=== PATIENT | female | born 2000 | race American Indian/Alaskan Native ===

== ENCOUNTER 2024-12-10 13:39 | Outpatient (AMB) | payer OTHER, SELFPAY ==
[2024-12-10 13:58] VITALS: BP 117/74; PULSE 81; RESP 18; TEMP 36.2; O2SAT 98; BMI 28.3
--- NOTE | 2024-12-10 13:58 | OBCLNT_ITS ---
Vital Signs 12/10/24 13:58 Height 1.57 m Height Method Stated Weight 70.42 kg Weight Measurement Method Standing Scale BMI 28.3 BP 117/74 Blood Pressure Source Automatic Cuff Blood Pressure Location Left Upper Arm Position Sitting Respiration 18 Pulse 81 Pulse Source Monitor Temp 97.2 F Temp Source Oral Pulse Oximetry (%) 98 Oxygen Delivery Method Room Air Allergies/Home Meds Allergies & Medications Allergies Penicillins Allergy (Severe, Verified 02/21/24 09:41) HIVES Medication Reconciliation No Known Home Medications 02/20/24 [History Confirmed 12/10/24] Intake Visit Data Collection New Patient or Established: Established Patient (seen at [facility] within 3 years) Reason for Visit:: OB INITAL Seen by Clinical Staff ONLY (RN/MA): No Christian Education Director Required: No Do You Feel Safe at Home: Yes Authorities Contacted: N/A PCP or OBGYN visit in last 3 months: Yes Hx Now: Yes Are you currently on any form of Control: No Last menstrual period: 10/01/24 Pain Present Currently: No Pain Scale Used: Velazquez-Agrawal/Numerical Pain scale:: 0 Smoking Status Smoking Status: Never smoker Questionnaires Covid-19 Vaccine Questionnaire Has patient been vacinated for Covid-19 Have you been vacinated for Covid-19: Yes PHQ-9 PHQ-2 Over the last 2 weeks, how often have you been bothered by any of the following problems? 1. Little interest or pleasure in doing things: not at all 2. Feeling down, depressed, or hopeless: not at all Total score: 0 PHQ-9 3. Trouble falling or staying asleep, or sleeping too much: Not at all 4. Feeling tired or having little energy: Not at all 5. Poor appetite or overeating: Not at all 6. Feeling bad about yourself - or that you are a failure or have let yourself or your family down: Not at all 7. Trouble concentrating on things, such as reading the newspaper or watching television: Not at all 8. Moving or speaking so slowly that other people could have noticed? - Or the opposite - being so fidgety or restless that you have been moving around a lot more than usual: not at all 9. Thoughts that you would be better off or of hurting yourself in some way: Not at all Total score: 0 If you checked off any problems, how difficult have these problems made it for you to do your work, take care of things at home, or get along with other people?: not difficult at all Source: Developed by Drs. Sergio Sarah, Sowmya Cross, Jorgito Montaño and colleagues, with an educational maegan from [employer]. Depression screen completed yes Social History Living Situation History Marital Status: Single Lives With: Family Housing: House Tobacco History Smoking Status: Never smoker Second Hand Smoke Exposure: No Alcohol History Alcohol Intake: Never Domestic Abuse History Do You Feel Safe at Home: Yes History of Present Illness HPI Narrative 24-year-old 3 para 1 here clinic today for OBI. Patient has 4-year-old at home. Her last period October 01, 2024. Reports sure dates. Patient denies social habits. Denies chronic illness. Denies any surgeries. Patient feels tired she does have some nausea but she is dealing with that. Denies any SAB complaints. 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: Past Medical History Past Medical History: No Hx Neurological Disorders, Yes Hx Cardiac Disorders (chest pain, palpitations in 2018), No Hx Cancer, No Hx Blood Disorders, No Hx Gastrointestinal Disorders, No Hx Renal Disease, No Hx Diabetes Mellitus Type 1 and No Hx Diabetes Mellitus Type 2 OB Initial Visit OB Flowsheet OB Flowsheet Initial Weight: Not Recorded Date -?-?-?-?-?-?-?-?-?-?-?-?- EGA Weight BP Alb Glu CTX Pres Fundal ht FHR Mov Dilation Station Effacement Hx Notes Visit Note 12/10/24 -?-?-?-?-?-?-?-?-?-?-?-?- 10w 0d 70.42 kg 117/74 absent unknown 10 145 24-year-old 3 para 1 for OBI. Slight nausea. Denies SAB complaints. And she is very happy with . OB panel today w ith NIPT and carrier screen. This schedule maternal- medicine ultrasound. Discussed SAB precautions. Increase fluids. Comfort measures for first trimester discomforts and nausea. And return in 4 weeks OB check Menstrual History Menstrual reliability: definite Flow: normal Menstrual regularity: regular Monthly: Yes Age at menarche: 11 On control pills at conception: No OB History : 3 Para: 1 Hx # Pregnancies: 0 Hx Total # of Abortions (Spontaneous & Elective): 1 # of Living Children: 1 Delivery History 1st : date: 09/19/19 sex: male Gestational age at delivery (weeks): 40 Delivery type: vaginal weight (lbs): 3175.147 g History of depression before or after : No Infection History & Risk Evaluation History of STDs: none HIV risk evaluation: low risk Hepatitis B risk evaluation: low risk Patient or partner has history of Genital Herpes: No Varicella/chicken pox status: immunized Genetic Screening & History Genetic Screening/Teratology Counseling - Includes patient, baby's father, or anyone in either family with: 1. Patient's age 35 years or older as of estimated date of delivery: No 2. Thalassemia (Haitian, Cayman Islander, Mediterranean, or Background); MCV less than 80: No 3. Neural Tube Defect (Meningomyelocele, Spina Bifida, or Anencephaly): No 4. Congenital Heart Defect: No 5. Down Syndrome: No 6. Jorge-Sachs (Ashkenazi Yazdanism, Cajun, Tajik [place]): No 7. Eden Disease (Ashkenazi Yazdanism): No 8. Familial Dysautonomia (Ashkenazi Yazdanism): No 9. Sickle Cell Disease or Trait (): No 10. Hemophilia or other blood disorders: No 11. Muscular Dystrophy: No 12. Cystic Fibrosis: No 13. [place]'s Chorea: No 14. Mental Retardation/Autism: No 15. Other inherited genetic or chromosomal disorder: No 16. Maternal Metabolic Disorder (EG,TYPE 1 Diabetes, PKU): No 17. Patient or baby's father had a child with defects not listed above: No 18. Recurrent loss or a stillbirth: No 19. Medications (including supplements, vitamins, herbs or otc drugs)/ill icit/recreational drugs/alcohol since last menstrual period: No 20. Any other: No Infection History 1. Live with someone with TB or exposed to TB: No 2. Rash or viral illness since last menstrual period: No 3. Hepatitis B,C: No Other (see comments) Source: [employer] Review of Systems Review of Systems Systems Reviewed: All systems reviewed, normal except as documented Exam General Limitations: no limitations General Appearance: alert, in no apparent distress, comfortable, cooperative, healthy appearing, well developed and well groomed Head Head exam: atraumatic, normocephalic and normal inspection Resp Respiratory exam: Present normal lung sounds bilaterally Card Cardiovascular exam: Present regular rate, normal rhythm and normal heart sounds Abdominal Abdominal exam: Present soft and normal bowel sounds Psych Psychiatric exam: Present normal affect and normal mood Office Procedures OB Clinic LOC & Office Proc's Nursing/Assessment Patient Status: Established Patient OB Clinic Nursing Assessment: Medication Reconciliation, Update PMH in EMR and Vital Signs OB Clinic Coordination of Care: Complex Care and Chronic Disease 1-5, Consent,records obtained, informed consent, Education Simp Pt/Fam, Lab and Imaging orders, Results/Orders obtained and Staff clarify orders Special Needs: Heart tones Established Patient Charge Established Patient Point Assignment: 135 Established Patient Point Charge: EP Level 4 (120-155) Assessment & Plan Diagnosis / Problem List (1) Encounter for supervision of normal in multigravida in first trimester: Status: Acute Plan OB panel today with NIPT and carrier screens. Schedule anatomy scan with maternal- medicine for 20 weeks. Discussed SAB precautions. Continue vitamins. Comfort measures for tiredness, nausea and other discomforts of . Discussed diet and weight. Increase fluids. Return in 4 weeks OB check Additional Plan Follow Up: 4 Weeks (OBC)
== END 2024-12-10 14:59 | disposition home or self-care (01) ==
LOC: HODSOBC 13:39
PROVIDERS: PCP Physician Assistant; Referring Provider Physician Assistant; Supervising Provider Advanced Practice Midwife; Visit Provider Advanced Practice Midwife
DX: Z34.81 Encounter for supervision of other normal pregnancy, first trimester (principal); Z3A.10 10 weeks gestation of pregnancy
CPT/HCPCS: 99214; G0463

== ENCOUNTER 2025-01-07 10:00 | Outpatient (AMB) | payer OTHER, SELFPAY ==
[2025-01-07 10:06] VITALS: BP 125/83; PULSE 91; RESP 17; TEMP 36.7; O2SAT 98; BMI 29.9
--- NOTE | 2025-01-07 10:06 | AMB.OBVISIT ---
Vital Signs 01/07/25 10:06 Height 1.57 m Height Method Measured Weight 74.106 kg Weight Measurement Method Standing Scale BMI 29.9 BP 125/83 Blood Pressure Source Automatic Cuff Blood Pressure Location Right Upper Arm Position Sitting Respiration 17 Pulse 91 Pulse Source Monitor Temp 98.1 F Temp Source Temporal Artery Scan Pulse Oximetry (%) 98 Oxygen Delivery Method Room Air Allergies/Home Meds Allergies & Medications Allergies Penicillins Allergy (Severe, Verified 01/07/25 10:07) HIVES Medication Reconciliation mv-mn no.97-folic 180 mcg-dha 25 mg-herb no.293 25 mg chewable tablet (Alive Daily Support ) tab PO 01/07/25 [History Confirmed 01/07/25] Intake Visit Data Collection New Patient or Established: Established Patient (seen at [facility] within 3 years) Reason for Visit:: OBC Consent obtained for Telemed Visit: No Seen by Clinical Staff ONLY (RN/MA): No Filter Tank Tender Required: No Do You Feel Safe at Home: Yes Authorities Contacted: N/A PCP or OBGYN visit in last 3 months: Yes Date of Last PCP or OBGYN visit: 12/10/24 Hx Now: Yes Are you currently on any form of Control: No Pain Present Currently: No Pain Scale Used: Velazquez-Agrawal/Numerical Pain scale:: 0 Smoking Status Smoking Status: Never smoker Questionnaires Covid-19 Vaccine Questionnaire Has patient been vacinated for Covid-19 Have you been vacinated for Covid-19: Yes PHQ-9 PHQ-2 Over the last 2 weeks, how often have you been bothered by any of the following problems? 1. Little interest or pleasure in doing things: not at all PHQ-9 8. Moving or speaking so slowly that other people could have noticed? - Or the opposite - being so fidgety or restless that you have been moving around a lot more than usual: not at all Source: Developed by Drs. Sergio Sarah, Sowmya Cross, Jorgito Montaño and colleagues, with an educational maegan from [employer]. 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 Slight nausea. Denies SAB complaints. And she is very happy with . OB panel today with NIPT and carrier screen. This schedule maternal- medicine ultrasound. Discussed SAB precautions. Increase fluids. Comfort measures for first trimester discomforts and nausea. And return in 4 weeks OB check 01/07/25 <del>?</del> 14w 0d 74.106 kg 125/83 absent unknown 14 145 active reports light FM, denies, sab s/s,no leaking,no bleeding, N/V improved. AFP NV, discuss sab precaution. mfm appt 02/18. rtc 4 week MC Calculator Estimated Delivery Date Method Current WG Current Estimate 07/08/25 LMP (Certain) 14w 0d Notes Visit Date: 01/07/25 Last Updated by: Mansi Glynn CNM 01/07/25: OB Panel: O+,abs-,rpr;;nr, rub NI, hbsag-,hiv-, hc-, GC/CT-, US-,UT-, NIPT_/girl, screen -. 250 Visit Date: 12/10/24 Last Updated by: Mansi Glynn CNM 24 yo . lmp 10/01/24. EDC 1:13;26 Office Procedures OB Clinic LOC & Office Proc's Nursing/Assessment Patient Status: Established Patient OB Clinic Nursing Assessment: Medication Reconciliation, Update PMH in EMR and Vital Signs OB Clinic Coordination of Care: Complex Care and Chronic Disease 1-5, Consent,records obtained, informed consent and 4+ Authorizations needed Special Needs: Heart tones Established Patient Charge Established Patient Point Assignment: 115 Established Patient Point Charge: EP Level 3 (80-115) Assessment & Plan Diagnosis / Problem List (1) Encounter for supervision of high risk in second trimester, antepartum: Status: Acute Plan discuss sab precaution, mfm appt 02/18. AFP NV. rtc 4 wk obc Additional Plan Follow Up: 4 Weeks (obc)
== END 2025-01-07 10:38 | disposition home or self-care (01) ==
LOC: HODSOBC 10:00
PROVIDERS: PCP Physician Assistant; Referring Provider Physician Assistant; Supervising Provider Advanced Practice Midwife; Visit Provider Advanced Practice Midwife
DX: O09.92 Supervision of high risk pregnancy, unspecified, second trimester (principal); Z3A.14 14 weeks gestation of pregnancy
CPT/HCPCS: 99213; G0463

== ENCOUNTER 2025-02-04 10:32 | Outpatient (AMB) | payer OTHER, SELFPAY ==
[2025-02-04 11:06] VITALS: BP 115/74; PULSE 73; RESP 14; TEMP 36.6; O2SAT 98; BMI 31.1
--- NOTE | 2025-02-04 11:06 | OBCLNT_ITS ---
Vital Signs 02/04/25 11:06 Height 1.57 m Height Method Stated Weight 76.714 kg Weight Measurement Method Standing Scale BMI 31.1 BP 115/74 Blood Pressure Source Automatic Cuff Blood Pressure Location Left Upper Arm Position Sitting Respiration 14 Pulse 73 Pulse Source Monitor Temp 98 F Temp Source Oral Pulse Oximetry (%) 98 Oxygen Delivery Method Room Air Allergies/Home Meds Allergies & Medications Allergies Penicillins Allergy (Severe, Verified 01/07/25 10:07) HIVES Medication Reconciliation mv-mn no.97-folic 180 mcg-dha 25 mg-herb no.293 25 mg chewable tablet (Alive Daily Support ) tab PO 01/07/25 [History Confirmed 02/04/25] Intake Visit Data Collection New Patient or Established: Established Patient (seen at [facility] within 3 years) Reason for Visit:: CARE Seen by Clinical Staff ONLY (RN/MA): No Smoking Pipe Coater Required: No Do You Feel Safe at Home: Yes Authorities Contacted: N/A PCP or OBGYN visit in last 3 months: Yes Hx Now: Yes Are you currently on any form of Control: No Pain Present Currently: No Pain Scale Used: Velazquez-Agrawal/Numerical Pain scale:: 0 Smoking Status Smoking Status: Never smoker Questionnaires Covid-19 Vaccine Questionnaire Has patient been vacinated for Covid-19 Have you been vacinated for Covid-19: Yes PHQ-9 PHQ-2 Over the last 2 weeks, how often have you been bothered by any of the following problems? 1. Little interest or pleasure in doing things: not at all 2. Feeling down, depressed, or hopeless: not at all Total score: 0 PHQ-9 3. Trouble falling or staying asleep, or sleeping too much: Not at all 4. Feeling tired or having little energy: Not at all 5. Poor appetite or overeating: Not at all 6. Feeling bad about yourself - or that you are a failure or have let yourself or your family down: Not at all 7. Trouble concentrating on things, such as reading the newspaper or watching television: Not at all 8. Moving or speaking so slowly that other people could have noticed? - Or the opposite - being so fidgety or restless that you have been moving around a lot more than usual: not at all 9. Thoughts that you would be better off or of hurting yourself in some way: Not at all Total score: 0 Source: Developed by Drs. Sergio Sarah, Sowmya Cross, Jorgito Montaño and colleagues, with an educational maegan from [employer]. 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 Slight nausea. Denies SAB complaints. And she is very happy with . OB panel today w ith NIPT and carrier screen. This schedule maternal- medicine ultrasound. Discussed SAB precautions. Increase fluids. Comfort measures for first trimester discomforts and nausea. And return in 4 weeks OB check 01/07/25 -?-?-?-?-?-?-?-?-?-?-?-?- 14w 0d 74.106 kg 125/83 absent unknown 14 145 active reports light FM, denies, sab s/s,no leaking,no bleeding, N/V improved. AFP NV, discuss sab precaution. mfm appt 02/18. rtc 4 week 02/04/25 -?-?-?-?-?-?-?-?-?-?-?-?- 18w 0d 76.714 kg 115/74 absent unknown 18 145 active No OB complaints. 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 MFM appointment scheduled for February 17. Reports movement. Denies leaking, denies bleeding, denies contractions. AFP, keep mfm appt 02/17, discussed labor precautions. Increase fluids. Return in 4 weeks OB check MC Calculator Estimated Delivery Date Method Current WG Current Estimate 07/08/25 LMP (Certain) 18w 0d Notes Visit Date: 01/07/25 Last Updated by: Mansi Glynn CNM 01/07/25: OB Panel: O+,abs-,rpr;;nr, rub NI, hbsag-,hiv-, hc-, GC/CT-, US-,UT-, NIPT_/girl, screen -. Visit Date: 12/10/24 Last Updated by: Mansi Glynn CNM 24 yo . lmp 10/01/24. EDC 1:13;26 Office Procedures OB Clinic LOC & Office Proc's Nursing/Assessment Patient Status: Established Patient OB Clinic Nursing Assessment: Medication Reconciliation, Update PMH in EMR and Vital Signs OB Clinic Coordination of Care: Complex Care and Chronic Disease 1-5, Consent,records obtained, informed consent, Education Simp Pt/Fam, Lab and Imaging orders, Results/Orders obtained and Staff clarify orders Special Needs: Heart tones Established Patient Charge Established Patient Point Assignment: 135 Established Patient Point Charge: EP Level 4 (120-155) Assessment & Plan Diagnosis / Problem List (1) Encounter for supervision of high risk in second trimester, antepartum: Status: Acute Plan aFP today. Keep MFM appointment from February 17. Discussed SAB precautions. Increase fluids. Return in 4 weeks OB check Additional Plan Follow Up: 4 Weeks (obc)
== END 2025-02-04 11:44 | disposition home or self-care (01) ==
LOC: HODSOBC 10:32
PROVIDERS: Supervising Provider Advanced Practice Midwife; Visit Provider Advanced Practice Midwife
DX: O09.92 Supervision of high risk pregnancy, unspecified, second trimester (principal); Z3A.18 18 weeks gestation of pregnancy; Z88.0 Allergy status to penicillin
CPT/HCPCS: 99214; G0463

== ENCOUNTER 2025-03-19 10:31 | Outpatient (AMB) | payer OTHER, SELFPAY ==
[2025-03-19 10:35] VITALS: BP 135/75; PULSE 105; RESP 17; TEMP 36.6; O2SAT 98; BMI 32.9
--- NOTE | 2025-03-19 10:35 | OBCLNT_ITS ---
Vital Signs 03/19/25 10:35 Height 1.57 m Height Method Measured Weight 81.25 kg Weight Measurement Method Standing Scale BMI 32.9 BP 135/75 H Blood Pressure Source Automatic Cuff Blood Pressure Location Right Upper Arm Position Sitting Respiration 17 Pulse 105 H Pulse Source Monitor Temp 97.8 F Temp Source Temporal Artery Scan Pulse Oximetry (%) 98 Oxygen Delivery Method Room Air Allergies/Home Meds Allergies & Medications Allergies Penicillins Allergy (Severe, Verified 01/07/25 10:07) HIVES Intake Visit Data Collection New Patient or Established: Established Patient (seen at [facility] within 3 years) Reason for Visit:: OBC FOLLOW UP Do You Feel Safe at Home: Yes Authorities Contacted: N/A PCP or OBGYN visit in last 3 months: Yes Date of Last PCP or OBGYN visit: 02/04/25 Hx Now: Yes Pain Present Currently: No Smoking Status Smoking Status: Never smoker Questionnaires PHQ-9 PHQ-2 Over the last 2 weeks, how often have you been bothered by any of the following problems? 1. Little interest or pleasure in doing things: not at all PHQ-9 8. Moving or speaking so slowly that other people could have noticed? - Or the opposite - being so fidgety or restless that you have been moving around a lot more than usual: not at all Source: Developed by Drs. Sergio Sarah, Sowmya Cross, Jorgito Montaño and colleagues, with an educational maegan from [employer]. 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 Slight nausea. Denies SAB complaints. And she is very happy with . OB panel today w ith NIPT and carrier screen. This schedule maternal- medicine ultrasound. Discussed SAB precautions. Increase fluids. Comfort measures for first trimester discomforts and nausea. And return in 4 weeks OB check 01/07/25 -?-?-?-?-?-?-?-?-?-?-?-?- 14w 0d 74.106 kg 125/83 absent unknown 14 145 active reports light FM, denies, sab s/s,no leaking,no bleeding, N/V improved. AFP NV, discuss sab precaution. [facility]. rtc 4 week 02/04/25 -?-?-?-?-?-?-?-?-?-?-?-?- 18w 0d 76.714 kg 115/74 absent unknown 18 145 active No OB complaints. 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 [facility] appointment scheduled for February 17. Reports movement. Denies leaking, denies bleeding, denies contractions. AFP, keep mfm appt 02/17, discussed labor precautions. Increase fluids. Return in 4 weeks OB check 03/19/25 -?-?-?-?-?-?-?-?-?-?-?-?- 24w 1d 81.25 kg 135/75 absent unknown 24 145 active No complaints of bleeding. No cramps. No leaking. Reports good movement. Patient was told her last ultrasound that the baby was measuring small and that she had complete previa Discussed previa with patient and precautions. labor precautions reviewed. Third trimester labs today with carrier screens. Discussed previa with patien t and precautions. labor precautions reviewed. Third trimester labs today. Discussed previa with patien t and precautions. labor precautions reviewed. Third trimester labs today. f[facility]u [facility]. schedule with OB MC Calculator Estimated Delivery Date Method Current WG Current Estimate 07/08/25 LMP (Certain) 24w 1d Other Estimates 07/08/25 Ultrasound #1 24w 1d 07/08/25 Manual 24w 1d final mc: 07/08. complete previa, EFW: Notes Visit Date: 03/19/25 Last Updated by: Mansi Glynn CNM 02/18/25: complete posterior previa. EFW: 13th %. IUP @20wk Visit Date: 01/07/25 Last Updated by: Mansi Glynn CNM 01/07/25: OB Panel: O+,abs-,rpr;;nr, rub NI, hbsag-,hiv-, hc-, GC/CT-, US-,UT-, NIPT_/girl, screen -. Visit Date: 12/10/24 Last Updated by: Mansi Glynn CNM 24 yo . lmp 10/01/24. EDC 1:13;26 Office Procedures OB Clinic LOC & Office Proc's Nursing/Assessment Patient Status: Established Patient OB Clinic Nursing Assessment: Medication Reconciliation, Update PMH in EMR and Vital Signs OB Clinic Coordination of Care: Complex Care and Chronic Disease 1-5, Education Complex Pt/Fam, Consent,records obtained, informed consent, Lab and Imaging orders and Results/Orders obtained Special Needs: Heart tones Established Patient Charge Established Patient Point Assignment: 130 Established Patient Point Charge: EP Level 4 (120-155) Assessment & Plan Diagnosis / Problem List (1) Placenta previa antepartum: Status: Acute Plan Discussed placenta previa. Reviewed danger signs and symptoms. Follow-up with maternal- medicine and schedule appointment April 02. Third trimester labs today. Increase fluids. Rest, no sex. schedule with OB nv Additional Plan Follow Up: 4 Weeks (obc)
== END 2025-03-19 11:07 | disposition home or self-care (01) ==
LOC: HODSOBC 10:31
PROVIDERS: Supervising Provider Advanced Practice Midwife; Visit Provider Advanced Practice Midwife
DX: O09.892 Supervision of other high risk pregnancies, second trimester (principal); O44.02 Complete placenta previa NOS or without hemorrhage, second trimester; Z3A.24 24 weeks gestation of pregnancy; Z88.0 Allergy status to penicillin
CPT/HCPCS: 99214; G0463

== ENCOUNTER 2025-04-16 09:22 | Outpatient (AMB) | payer OTHER, SELFPAY ==
[2025-04-16 09:49] VITALS: BP 121/78; PULSE 93; RESP 18; TEMP 36.7; O2SAT 98; BMI 34.6
--- NOTE | 2025-04-16 09:49 | AMB.OBVISIT ---
Vital Signs 04/16/25 09:49 Height 1.57 m Height Method Stated Weight 85.332 kg Weight Measurement Method Standing Scale BMI 34.6 BP 121/78 Blood Pressure Source Automatic Cuff Blood Pressure Location Right Upper Arm Position Sitting Respiration 18 Pulse 93 Pulse Source Monitor Temp 98.0 F Temp Source Temporal Artery Scan Pulse Oximetry (%) 98 Oxygen Delivery Method Room Air Allergies/Home Meds Allergies & Medications Allergies Penicillins Allergy (Severe, Verified 06/10/25 08:50) HIVES Medication Reconciliation mv-mn no.97-folic 180 mcg-dha 25 mg-herb no.293 25 mg chewable tablet (Alive Daily Support ) tab PO 01/07/25 [History Confirmed 06/10/25] Intake Visit Data Collection New Patient or Established: Established Patient (seen at [facility] within 3 years) Reason for Visit:: OBC Seen by Clinical Staff ONLY (RN/MA): 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: No Do You Feel Safe at Home: Yes Authorities Contacted: N/A PCP or OBGYN visit in last 3 months: Yes Date of Last PCP or OBGYN visit: 03/19/25 Hx Now: Yes Are you currently on any form of Control: No Pain Present Currently: No Pain Scale Used: Velazquez-Agrawal/Numerical Pain scale:: 0 Smoking Status Smoking Status: Never smoker Immunizations Flu Vaccine in the Last 12 Months: No Questionnaires Covid-19 Vaccine Questionnaire Has patient been vacinated for Covid-19 Have you been vacinated for Covid-19: No PHQ-9 PHQ-2 Over the last 2 weeks, how often have you been bothered by any of the following problems? 1. Little interest or pleasure in doing things: not at all 2. Feeling down, depressed, or hopeless: not at all Total score: 0 PHQ-9 3. Trouble falling or staying asleep, or sleeping too much: Not at all 4. Feeling tired or having little energy: Not at all 6. Feeling bad about yourself - or that you are a failure or have let yourself or your family down: Not at all 7. Trouble concentrating on things, such as reading the newspaper or watching television: Not at all 8. Moving or speaking so slowly that other people could have noticed? - Or the opposite - being so fidgety or restless that you have been moving around a lot more than usual: not at all 9. Thoughts that you would be better off or of hurting yourself in some way: Not at all If you checked off any problems, how difficult have these problems made it for you to do your work, take care of things at home, or get along with other people?: not difficult at all Source: Developed by Drs. Sergio Sarah, Sowmya Cross, Jorgito Montaño and colleagues, with an educational maegan from [employer]. 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 Slight nausea. Denies SAB complaints. And she is very happy with . OB panel today with NIPT and carrier screen. This schedule maternal- medicine ultrasound. Discussed SAB precautions. Increase fluids. Comfort measures for first trimester discomforts and nausea. And return in 4 weeks OB check 01/07/25 <del>?</del> 14w 0d 74.106 kg 125/83 absent unknown 14 145 active reports light FM, denies, sab s/s,no leaking,no bleeding, N/V improved. AFP NV, discuss sab precaution. mfm appt 02/18. rtc 4 week 02/04/25 <del>?</del> 18w 0d 76.714 kg 115/74 absent unknown 18 145 active No OB complaints. 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 [facility] appointment scheduled for February 17. Reports movement. Denies leaking, denies bleeding, denies contractions. AFP, keep mfm appt 02/17, discussed labor precautions. Increase fluids. Return in 4 weeks OB check 03/19/25 <del>?</del> 24w 1d 81.25 kg 135/75 absent unknown 24 145 active No complaints of bleeding. No cramps. No leaking. Reports good movement. Patient was told her last ultrasound that the baby was measuring small and that she had complete previa Discussed previa with patient and precautions. labor precautions reviewed. Third trimester labs today with carrier screens. Discussed previa with patient and precautions. labor precautions reviewed. Third trimester labs today. Discussed previa with patient and precautions. labor precautions reviewed. Third trimester labs today. f/u [facility] 04/02. schedule with OB 04/16/25 <del>?</del> 28w 1d 85.332 kg 121/78 - Renan Shipley is a 3 para 1-0-1 at 28 weeks and 1 day gestation presenting for review of her 3-hour glucose tolerance test and anatomy ultrasound with Doppler testing. - She had a 1-hour glucose screening test result of 147 mg/dL. - She reports the baby is active. - She denies cramping, contractions, leaking, or bleeding. - She confirms taking her vitamins. - She has been seeing the certified nurse risk control product liability director (Mansi) in the office who previously delivered her son. - Follow-up in 4 weeks for growth with Doppler and biophysical profile - Continue with LAURA Nazario for routine care - Sit on exercise ball 10-15 minutes morning and evening to help encourage head-down position - Continue vitamins - Follow-up appointment with Mansi in 2 weeks 04/30/25 <del>?</del> 30w 1d 87.26 kg 111/71 absent unknown 30 145 active No OB complaints. Fetus is active per patient. Denies leaking bleeding or contractions Follow-up maternal- medicine appointment May 07. Continue breech exercises. Discussed labor precautions danger signs and symptoms, and kick count twice a day. Patient declined Tdap 05/28/25 <del>?</del> 34w 1d 90.265 kg 117/78 absent cephalic 34 145 active Reports good movement. Denies leaking, bleeding, contractions. I reviewed patient's May 07 [facility] referral. During the visit MFM provider discussed with patient her pulse. She noted when the patient came for her [facility] appointment as her pulse was over 100. [facility] can discussed with patient her previous history and it was noted that when the patient was about 15 years old she saw a marketing specialist for complaints of palpitations. The marketing specialist told the patient that maybe she had mitral valve prolapse and that the patient should not worry about any other findings. So the patient had no follow-up for this history of palpitations. The patient does report that as she has grown older she seems to have an episode of her pulse starting to be elevated and some palpitations. But it sporadic and comes and goes. Patient denies any palpitations and chest pain with it. She also does not have any syncope with that and she does not seem to think that it is getting any worse. Patient does have an outstanding referral to Dr. Pako Belcher a marketing specialist for echo and Holter. Her insurance right now is not working and still having difficulty with the referral.. Pulse today was 80 and regular. Lungs clear no wheezes. Reports good movement. Denies leaking, bleeding, contractions. I reviewed patient's May 07 [facility] referral. During the visit MFM provider discussed with patient her pulse. She noted when the patient came for her [facility] appointment as her pulse was over 100. [facility] can discussed with patient her previous history and it was noted that when the patient was about 15 years old she saw a marketing specialist for complaints of palpitations. The marketing specialist told the patient that maybe she had mitral valve prolapse and that the patient should not worry about any other findings. So the patient had no follow-up for this history of palpitations. The patient does report that as she has grown older she seems to have an episode of her pulse starting to be elevated and some palpitations. But it sporadic and comes and goes. Patient denies any palpitations and chest pain with it. She also does not have any syncope with that and she does not seem to think that it is getting any worse. Patient does have an outstanding referral to Dr. Pako Belcher a marketing specialist for echo and Holter. Her insurance right now is not working and still having difficulty with the referral.. Pulse today was 80 and regular. Lungs clear no wheezes. EKG normal rythm EKG in the ED today. Patient will call her primary care [place] and discussed with them her options of getting the referral to cardiology. Discussed labor precautions. Kick count twice a day. Continue prenatals. Patient has a follow-up with [facility] again June 19. Return in 2 weeks OB check 06/10/25 <del>?</del> 36w 0d 91.682 kg 110/74 110/70 absent cephalic 36 145 active 1 -4 Insurance is not working. Patient's referral to cardiology is still pending. Reports good movement. Denies any dizziness. No headache no blurred vision patient is tired of being no comfortable. Reports movement. Denies leaking, bleeding. Increased contractions IOL 07/02/25 IOL 07/02/25. GBS today. Discussed comfort measures for labor and early labor. Kick count twice a day. Keep appointment with maternal- medicine June 19. [facility] Calculator Estimated Delivery Date Method Current WG Current Estimate 07/08/25 LMP (Certain) 37w 3d Other Estimates 07/08/25 Ultrasound #1 37w 3d 07/08/25 Manual 37w 3d final mc: 07/08/25. complete previa, EFW: Notes Visit Date: 06/10/25 Last Updated by: Mansi Glynn CNM sono 05/07/25: EFW 28%, normal AFP, Previa resolved. BPP 02/01 Visit Date: 04/16/25 Last Updated by: Darryl Awan MD Laboratory, Imaging, and Diagnostic Test Results - One-hour glucose screenin mg/dL - Three-hour glucose tolerance test: 87, 111, 114, 101 mg/dL (normal) - Ultrasound (04/02/2025) at [facility]: Single living fetus at 26 weeks gestation, transverse presentation, weight 768 grams (8th percentile), abdominal circumference at 20th percentile, amniotic fluid within normal limits, posterior low-lying placenta (previously placenta previa, now resolved), S/D ratio normal at 4.17, overall reassuring status, growth restriction noted Visit Date: 03/19/25 Last Updated by: Mansi Glynn CNM 02/18/25: complete posterior previa. EFW: 13th %. IUP @20wk Visit Date: 01/07/25 Last Updated by: Mansi Glynn CNM 01/07/25: OB Panel: O+,abs-,rpr;;nr, rub NI, hbsag-,hiv-, hc-, GC/CT-, US-,UT-, NIPT_/girl, screen -. Visit Date: 12/10/24 Last Updated by: Mansi Glynn CNM 24 yo . lmp 10/01/24. EDC 1:13;26 Office Procedures OBC Clinic LOC & Office Proc's Nursing/Assessment Patient Status: Established Patient OB Clinic Nursing Assessment: Medication Reconciliation, Update PMH in EMR and Vital Signs OB Clinic Coordination of Care: Complex Care and Chronic Disease 1-5, Education Complex Pt/Fam, Consent,records obtained, informed consent, Lab and Imaging orders and Staff clarify orders Special Needs: Heart tones Established Patient Charge Established Patient Point Assignment: 135 Established Patient Point Charge: EP Level 4 (120-155) Assessment & Plan Diagnosis / Problem List (1) Encounter for supervision of high risk in third trimester, antepartum: Status: Acute (2) MVP (mitral valve prolapse): Status: Acute Plan Problem List - growth restriction - Intrauterine growth restriction Assessment 28-week and 1-day gestation with growth restriction, with fetus measuring at 8th percentile (768 grams) and abdominal circumference at 20th percentile on ultrasound performed at [facility] on 04-02-2025. Three-hour glucose tolerance test results are normal (87, 111, 114, 101), ruling out gestational diabetes after initial one-hour glucose screening of 147. Previously identified posterior placenta previa has resolved with placenta now described as posterior low-lying. presentation is currently transverse. Amniotic fluid levels are within normal limits and umbilical artery Doppler studies show normal S/D ratio of 4.17 with overall reassuring status. Plan - Follow-up in 4 weeks for growth with Doppler and biophysical profile - Continue with LAURA Nazario for routine care - Sit on exercise ball 10-15 minutes morning and evening to help encourage head-down position - Continue vitamins - Follow-up appointment with Mansi in 2 weeks 1. Progress Reviewed gestational age (28 weeks 1 day), growth (768 grams, 8th percentile with growth restriction), and heart rate (143-145 bpm, normal). Planned frequent visits (every 4 weeks for growth with Dopplers and biophysical profile, then every 2 weeks after 30 weeks). 2. Instructed patient to monitor movements and report decreases immediately. 3. Testing Counseled on routine third-trimester labs per guidelines. Discussed potential need for ultrasound or monitoring based on risk factors ( growth restriction requiring serial monitoring). 4. Preeclampsia Precaution Educated on preeclampsia signs: severe headache, vision changes, right upper quadrant pain, sudden swelling. Advised urgent reporting of symptoms and discussed blood pressure monitoring if high risk. 5. Labor Precautions Reviewed labor signs: regular contractions, pelvic pressure, back pain, bleeding, or fluid leakage. Instructed to seek immediate care for these symptoms. 6. Lifestyle and Delivery Preparation Reinforced vitamins (patient confirmed taking prenatals), nutrition, and safe activity. Discussed plan, pain management, and . Advised on labor preparation (exercise ball sitting 10-15 minutes morning and evening to encourage head-down position) and expectations. 7. Psychosocial Support Assessed emotional well-being and offered resources for mental health or parenting support.
== END 2025-04-16 10:28 | disposition home or self-care (01) ==
LOC: HODSOBC 09:22
PROVIDERS: Supervising Provider Obstetrics & Gynecology; Visit Provider Obstetrics & Gynecology
DX: O09.893 Supervision of other high risk pregnancies, third trimester (principal); O36.5930 Maternal care for other known or suspected poor fetal growth, third trimester, not applicable or unspecified; O32.2XX0 Maternal care for transverse and oblique lie, not applicable or unspecified; O99.413 Diseases of the circulatory system complicating pregnancy, third trimester; I34.1 Nonrheumatic mitral (valve) prolapse; Z3A.28 28 weeks gestation of pregnancy; Z88.0 Allergy status to penicillin
CPT/HCPCS: 99214; G0463

== ENCOUNTER 2025-04-30 09:22 | Outpatient (AMB) | payer OTHER, SELFPAY ==
[2025-04-30 09:31] VITALS: BP 111/71; PULSE 95; RESP 18; TEMP 36.2; O2SAT 98; BMI 35.4
--- NOTE | 2025-04-30 09:31 | OBCLNT_ITS ---
Vital Signs 04/30/25 09:31 Height 1.57 m Height Method Stated Weight 87.26 kg Weight Measurement Method Standing Scale BMI 35.4 BP 111/71 Blood Pressure Source Automatic Cuff Blood Pressure Location Left Upper Arm Position Sitting Respiration 18 Pulse 95 Pulse Source Monitor Temp 97.2 F Temp Source Oral Pulse Oximetry (%) 98 Oxygen Delivery Method Room Air Allergies/Home Meds Allergies & Medications Allergies Penicillins Allergy (Severe, Verified 04/30/25 09:32) HIVES Medication Reconciliation mv-mn no.97-folic 180 mcg-dha 25 mg-herb no.293 25 mg chewable tablet (Alive Daily Support ) tab PO 01/07/25 [History Confirmed 04/30/25] Intake Visit Data Collection New Patient or Established: Established Patient (seen at [facility] within 3 years) Reason for Visit:: OBC Seen by Clinical Staff ONLY (RN/MA): No Tour Conductor Required: No Do You Feel Safe at Home: Yes Authorities Contacted: N/A PCP or OBGYN visit in last 3 months: Yes Date of Last PCP or OBGYN visit: 04/16/25 Hx Now: Yes Are you currently on any form of Control: No Pain Present Currently: No Pain Scale Used: Velazquez-Agrawal/Numerical Pain scale:: 0 Smoking Status Smoking Status: Never smoker Immunizations Flu Vaccine in the Last 12 Months: No Flu Vaccine Exclusion Criteria: No Exclusion Criteria Questionnaires Covid-19 Vaccine Questionnaire Has patient been vacinated for Covid-19 Have you been vacinated for Covid-19: Yes PHQ-9 PHQ-2 Over the last 2 weeks, how often have you been bothered by any of the following problems? 1. Little interest or pleasure in doing things: not at all 2. Feeling down, depressed, or hopeless: not at all Total score: 0 PHQ-9 3. Trouble falling or staying asleep, or sleeping too much: Not at all 4. Feeling tired or having little energy: Not at all 5. Poor appetite or overeating: Not at all 6. Feeling bad about yourself - or that you are a failure or have let yourself or your family down: Not at all 7. Trouble concentrating on things, such as reading the newspaper or watching television: Not at all 8. Moving or speaking so slowly that other people could have noticed? - Or the opposite - being so fidgety or restless that you have been moving around a lot more than usual: not at all 9. Thoughts that you would be better off or of hurting yourself in some way: Not at all Total score: 0 If you checked off any problems, how difficult have these problems made it for y ou to do your work, take care of things at home, or get along with other people?: not difficult at all Source: Developed by Drs. Sergio Sarah, Sowmya Cross, Jorgito Montaño and colleagues, with an educational maegan from [employer]. 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 Slight nausea. Denies SAB complaints. And she is very happy with . OB panel today w ith NIPT and carrier screen. This schedule maternal- medicine ultrasound. Discussed SAB precautions. Increase fluids. Comfort measures for first trimester discomforts and nausea. And return in 4 weeks OB check 01/07/25 -?-?-?-?-?-?-?-?-?-?-?-?- 14w 0d 74.106 kg 125/83 absent unknown 14 145 active reports light FM, nini es, sab s/s,no leaking,no bleeding, N/V improved. AFP NV, discuss sab precaution. mfm appt 02/18. rtc 4 week 02/04/25 -?-?-?-?-?-?-?-?-?-?-?-?- 18w 0d 76.714 kg 115/74 absent unknown 18 145 active No OB complaints. 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 [facility] appointment scheduled for February 17. Reports movement. Denies leaking, denies bleeding, denies contractions. AFP, keep [facility] appt 02/17, discussed labor precautions. Increase fluids. Return in 4 weeks OB check 03/19/25 -?-?-?-?-?-?-?-?-?-?-?-?- 24w 1d 81.25 kg 135/75 absent unknown 24 145 active No complaints of bleeding. No cramps. No leaking. Reports good movement. Patient was told her last ultrasound that the baby was measuring small and that she had complete previa Discussed previa with patient and precautions. labor precautions reviewed. Third trimester labs today with carrier screens. Discussed previa with patien t and precautions. labor precautions reviewed. Third trimester labs today. Discussed previa with patien t and precautions. labor precautions revie wed. Third trimester labs today. f/u [facility] 04/02. schedule with OB 04/30/25 -?-?-?-?-?-?-?-?-?-?-?-?- 30w 1d 87.26 kg 111/71 absent unknown 30 145 active No OB complaints. Fetus is active per patient. Denies leaking bleeding or contractions Follow-up maternal- medicine appointment May 07. Continue breech exercises. Discussed labor precautions danger signs and symptoms, and kick count twice a day. Patient declined Tdap GENEVIEVE Calculator Estimated Delivery Date Method Current WG Current Estimate 07/08/25 LMP (Certain) 30w 1d Other Estimates 07/08/25 Ultrasound #1 30w 1d 07/08/25 Manual 30w 1d final genevieve: 07/08. complete previa, EFW: Notes Visit Date: 03/19/25 Last Updated by: Mansi Glynn CNM 02/18/25: complete posterior previa. EFW: 13th %. IUP @20wk Visit Date: 01/07/25 Last Updated by: Mansi Glynn CNM 01/07/25: OB Panel: O+,abs-,rpr;;nr, rub NI, hbsag-,hiv-, hc-, GC/CT-, US-,UT-, NIPT_/girl, screen -. Visit Date: 12/10/24 Last Updated by: Mansi Glynn CNM 24 yo . lmp 10/01/24. EDC 1:13;26 Office Procedures OBC Clinic LOC & Office Proc's Nursing/Assessment Patient Status: Established Patient OB Clinic Nursing Assessment: Medication Reconciliation, Update PMH in EMR and Vital Signs OB Clinic Coordination of Care: Consent,records obtained, informed consent, Education Simp Pt/Fam, Lab and Imaging orders, Results/Orders obtained and Staff clarify orders Special Needs: Heart tones Established Patient Charge Established Patient Point Assignment: 110 Established Patient Point Charge: EP Level 3 (80-115) Assessment & Plan Diagnosis / Problem List (1) Encounter for supervision of high risk in third trimester, antepartum: Status: Acute Plan Patient declined Tdap. Maternal- medicine appointment May 07. Discussed labor precautions. Kick count twice a day. Discussed growth. Return in 2 weeks OB check Additional Plan Follow Up: 2 Weeks (obc)
== END 2025-04-30 10:29 | disposition home or self-care (01) ==
LOC: HODSOBC 09:22
PROVIDERS: Supervising Provider Advanced Practice Midwife; Visit Provider Advanced Practice Midwife
DX: O09.93 Supervision of high risk pregnancy, unspecified, third trimester (principal); Z3A.30 30 weeks gestation of pregnancy; Z88.0 Allergy status to penicillin; Z28.21 Immunization not carried out because of patient refusal
CPT/HCPCS: 99213; G0463

== ENCOUNTER 2025-05-28 10:54 | Outpatient (AMB) | payer OTHER, SELFPAY ==
--- NOTE | 2025-05-28 11:17 | OBCLNT_ITS ---
Vital Signs 05/28/25 11:18 Height 1.57 m Height Method Stated Weight 90.265 kg Weight Measurement Method Standing Scale BMI 36.6 BP 117/78 Blood Pressure Source Automatic Cuff Blood Pressure Location Left Upper Arm Position Sitting Respiration 18 Pulse 92 Pulse Source Monitor Temp 97.2 F Temp Source Oral Pulse Oximetry (%) 98 Oxygen Delivery Method Room Air Allergies/Home Meds Allergies & Medications Allergies Penicillins Allergy (Severe, Verified 05/28/25 13:11) HIVES Medication Reconciliation mv-mn no.97-folic 180 mcg-dha 25 mg-herb no.293 25 mg chewable tablet (Alive Daily Support ) tab PO 01/07/25 [History Confirmed 05/28/25] Immunizations Immunizations Flu Vaccine in the Last 12 Months: No Flu Vaccine Exclusion Criteria: No Exclusion Criteria Care OB Visit Log OB Flowsheet Initial Weight: Not Recorded Date -?-?-?-?-?-?-?-?-?-?-?-?- EGA Weight BP Alb Glu CTX Pres Fundal ht FHR Mov Dilation Station Effacement Hx Notes Visit Note 12/10/24 -?-?-?-?-?-?-?-?-?-?-?-?- 10w 0d 70.42 kg 117/74 absent unknown 10 145 24-year-old 3 para 1 for OBI. Slight nausea. Denies SAB complaints. And she is very happy with . OB panel today w ith NIPT and carrier screen. This schedule maternal- medicine ultrasound. Discussed SAB precautions. Increase fluids. Comfort measures for first trimester discomforts and nausea. And return in 4 weeks OB check 01/07/25 -?-?-?-?-?-?-?-?-?-?-?-?- 14w 0d 74.106 kg 125/83 absent unknown 14 145 active reports light FM, denies, sab s/s,no leaking,no bleeding, N/V improved. AFP NV, discuss sab precaution. [facility] appt 02/18. rtc 4 week 02/04/25 -?-?-?-?-?-?-?-?-?-?-?-?- 18w 0d 76.714 kg 115/74 absent unknown 18 145 active No OB complaints. 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 [facility] appointment scheduled for February 17. Reports movement. Denies leaking, denies bleeding, denies contractions. AFP, keep mfm appt 02/17, discussed labor precautions. Increase fluids. Return in 4 weeks OB check 03/19/25 -?-?-?-?-?-?-?-?-?-?-?-?- 24w 1d 81.25 kg 135/75 absent unknown 24 145 active No complaints of bleeding. No cramps. No leaking. Reports good movement. Patient was told her last ultrasound that the baby was measuring small and that she had complete previa Discussed previa with patient and precautions. labor precautions reviewed. Third trimester labs today with carrier screens. Discussed previa with patien t and precautions. labor precautions reviewed. Third trimester labs today. Discussed previa with patien t and precautions. labor precautions reviewed. Third trimester labs today. f/u [facility] 04/02. schedule with OB 04/30/25 -?-?-?-?-?-?-?-?-?-?-?-?- 30w 1d 87.26 kg 111/71 absent unknown 30 145 active No OB complaints. Fetus is active per patient. Denies leaking bleeding or contractions Follow-up maternal- medicine appointment May 07. Continue breech exercises. Discussed labor precautions danger signs and symptoms, and kick count twice a day. Patient declined Tdap 05/28/25 -?-?-?-?-?-?-?-?-?-?-?-?- 34w 1d 90.265 kg 117/78 absent cephalic 34 145 active Reports good movement. Denies leaking, bleeding, contractions. I reviewed patient's May 07 MFM referral. During the visit MFM provider discussed with patient her pulse. She noted when the patient came for her MFM appointment as her pulse was over 100. [facility] can discussed with patient her previous history and it was noted that when the patient was about 15 years old she saw a business integration manager for complaints of palpitations. The business integration manager told the patient that maybe she had mitral valve prolapse and that the patient should not worry about any other findings. So the patient had no follow-up for this history of palpitations. The patient does report that as she has grown older she seems to have an episode of her pulse starting to be elevated and some palpitations. But it sporadic and comes and goes. Patient denies any palpitations and chest pain with it. She also does not have any syncope with that and she does not seem to think that it is getting any worse. Patient does have an outstanding referral to Dr. Pako Belcher a business integration manager for echo and Holter. Her insurance right now is not working and still having difficulty with the referral.. Pulse today was 80 and regular. Lungs clear no wheezes. Reports good movement. Denies leaking, bleeding, contractions. I reviewed patient's May 07 MFM referral. During the visit MFM provider discussed with patient her pulse. She noted when the patient came for her MFM appointment as her pulse was over 100. [facility] can discussed with patient her previous history and it was noted that when the patient was about 15 years old she saw a business integration manager for complaints of palpitations. The business integration manager told the patient that maybe she had mitral valve prolapse and that the patient should not worry about any other findings. So the patient had no follow-up for this history of palpitations. The patient does report that as she has grown older she seems to have an episode of her pulse starting to be elevated and some palpitations. But it sporadic and comes and goes. Patient denies any palpitations and chest pain with it. She also does not have any syncope with that and she does not seem to think that it is getting any worse. Patient does have an outstanding referral to Dr. Pako Belcher a business integration manager for echo and Holter. Her insurance right now is not working and still having difficulty with the referral.. Pulse today was 80 and regular. Lungs clear no wheezes. EKG normal rythm EKG in the ED to day. Patient will call her primary care [place] and discussed with them her options of getting the referral to cardiology. Discussed labor precautions. Kick count twice a day. Continue prenatals. Patient has a follow-up with [facility] again June 19. Return in 2 weeks OB check MC Calculator Estimated Delivery Date Method Current WG Current Estimate 07/08/25 LMP (Certain) 34w 1d Other Estimates 07/08/25 Ultrasound #1 34w 1d 07/08/25 Manual 34w 1d final mc: 07/08. complete previa, EFW: Notes Visit Date: 03/19/25 Last Updated by: Mansi Glynn CNM 02/18/25: complete posterior previa. EFW: 13th %. IUP @20wk Visit Date: 01/07/25 Last Updated by: Mansi Glynn CNM 01/07/25: OB Panel: O+,abs-,rpr;;nr, rub NI, hbsag-,hiv-, hc-, GC/CT-, US-,UT-, NIPT_/girl, screen -. Visit Date: 12/10/24 Last Updated by: Mansi Glynn CNM 24 yo . lmp 10/01/24. EDC 1:13;26 Office Procedures OBC Clinic LOC & Office Proc's Nursing/Assessment Patient Status: Established Patient OB Clinic Nursing Assessment: Medication Reconciliation, Update PMH in EMR and Vital Signs OB Clinic Coordination of Care: Consent,records obtained, informed consent, Education Simp Pt/Fam, Lab and Imaging orders and Results/Orders obtained Special Needs: Heart tones Established Patient Charge Established Patient Point Assignment: 100 Established Patient Point Charge: EP Level 3 (80-115) Assessment & Plan Diagnosis / Problem List (1) Encounter for supervision of high risk in third trimester, antepartum: Status: Acute Plan Review history regarding palpitations with patient. Patient will contact primary care provider and follow-up the status of her referral to Dr. Pako Belcher business integration manager. I ordered a EKG today. Discussed labors. Kick count twice a day. Patient has a follow-up with [facility] June 19. Return in a week OB check Additional Plan Follow Up: 1 Week (OBC)
[2025-05-28 11:18] VITALS: BP 117/78; PULSE 92; RESP 18; TEMP 36.2; O2SAT 98; BMI 36.6
== END 2025-05-28 12:19 | disposition home or self-care (01) ==
LOC: HODSOBC 10:54
PROVIDERS: Supervising Provider Advanced Practice Midwife; Visit Provider Advanced Practice Midwife
DX: O09.893 Supervision of other high risk pregnancies, third trimester (principal); O99.891 Other specified diseases and conditions complicating pregnancy; R00.2 Palpitations; Z3A.34 34 weeks gestation of pregnancy; Z59.71 Insufficient health insurance coverage; Z88.0 Allergy status to penicillin
CPT/HCPCS: 99213; G0463

== ENCOUNTER 2025-05-28 13:09 | Emergency (ER) | payer OTHER, SELFPAY ==
[2025-05-28 13:24] VITALS: BP 110/69; PULSE 90; RESP 16; TEMP 37; O2SAT 98; BMI 31.9
--- NOTE | 2025-05-28 13:25 | XR_ITS ---
Examination: Complete OB ultrasound greater than 14 weeks Date and time of exam: May 28 2025, 1513 hours INDICATIONS: Chest pain today 34-week by history Findings: Viable intrauterine single fetus with single amniotic sac presentation cephalic Cardiac motion 130 bpm Placenta fundal grade 3 Medical cord insertion seen Amniotic fluid index 14.9 cm Cervix 3.9 cm Ovaries obscured by bowel gas. Composite estimated gestational age based on BPD, head circumference, abdominal circumference, femur length is 34 weeks 2 days Estimated weight 2350.7 g. Survey of intracranial anatomy, spinal anatomy, abdominal anatomy, four-chamber heart performed with no abnormalities identified. Impression: Viable intrauterine gestation cephalic presentation.
--- NOTE | 2025-05-28 13:25 | EKG_ITS ---
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
[2025-05-28 13:45] LABS: Basophils # (Auto) 0.0 Thou/mm3 (0.0-0.2); Basophils % (Auto) 1 % (0-2.5); Eosinophils # (Auto) 0.1 Thou/mm3 (0.0-0.5); Eosinophils % (Auto) 1 % (0-10); Hematocrit 35.4 % (36.0-46.0); Hemoglobin 11.5 g/dL (12.0-16.0); Immature Granulocytes Auto 0.13 Thou/mm3 (0.00-0.00); Lymphocytes # (Auto) 1.4 Thou/mm3 (1.0-4.8); Lymphocytes % (Auto) 17 % (10-50); Mean Corpuscular HGB Conc 32.5 g/dl (31.0-37.0); Mean Corpuscular Hemoglobin 28.2 pg (25.0-35.0); Mean Corpuscular Volume 87 fL (80-100); Monocytes # (Auto) 0.5 Thou/mm3 (0.0-0.8); Monocytes % (Auto) 6 % (0-12); Neutrophils # (Auto) 5.9 Thou/mm3 (1.8-7.7); Neutrophils % (Auto) 74 % (37-80); Nucleated Red Blood Cell # 0.00 Thou/mm3 (0.00-0.00); Nucleated Red Blood Cell % 0 /100 WBC (0); Platelet Count 223 Thou/mm3 (140-440); RDW Standard Deviation 45.1 fL (36.4-46.3); Red Blood Count 4.08 Miln/mm3 (4.00-5.20); White Blood Count 8.0 Thou/mm3 (3.6-11.0)
[2025-05-28 14:01] LABS: Collection Type, Urine Voided
[2025-05-28 14:10] LABS: Alanine Aminotransferase 11 U/L (10-49); Albumin, Serum 4.2 gm/dL (3.5-5.0); Albumin/Globulin Ratio 1.7 (1.2-2.2); Alkaline Phosphatase 153 U/L (46-116); Anion Gap 10 (7-16); Aspartate Amino Transferase 17 U/L (0-34); BUN/Creatinine Ratio 8 Ratio (12-20); Bilirubin,Total 0.2 mg/dL (0.3-1.2); Blood Urea Nitrogen < 5 mg/dL (9-23); Calcium 9.1 mg/dL (8.3-10.6); Calcium (Corrected) 9.1 mg/dL (8.5-10.1); Carbon Dioxide 23.1 mMol/L (20.0-31.0); Chloride 107 mMol/L (98-107); Creatinine (Component) 0.6 mg/dL (0.6-1.3); Estimated Creatinine Clearance 161.8 mL/min (>60); Globulin 2.5 gm/dL (2.3-3.5); Glucose 124 mg/dL (74-106); Osmolality,Calculated 277 (275-295); Potassium 3.8 mMol/L (3.4-5.1); Sodium 140 mMol/L (136-145); Thyroid Stimulating Hormone 1.42 uIU/mL (0.55-4.78); Total Protein 6.7 gm/dL (5.7-8.2); Troponin I < 0.002 ng/mL (0.0-0.045); eGFR > 60 See Note
[2025-05-28 14:10] LABS: Bacteria,Urine Rare; Bilirubin,Urine Negative (Negative); Blood,Urine 2+ (Negative); Clarity,Urine Turbid (Clear/Hazy); Color,Urine Lt-Yellow (Lt Yel-Yel); Glucose, Urine Negative (Negative); Hyaline Casts,Urine < 1 /hpf (0-1); Ketones,Urine Negative (Negative); Leukocyte Esterase,Urine Positive (Negative); Nitrite,Urine Negative (Negative); PH,Urine 6.5 (5.0-7.0); Protein,Urine Negative (Neg - Trace); RBC,Urine 3 /hpf (0-3); Specific Gravity,Urine 1.012 (1.001-1.035); Squamous Epithelial Cell,Urine 23 /hpf (0-5); Urobilinogen,Urine Negative mg/dL (0.0-1.0); WBC,Urine 5 /hpf (0-5)
[2025-05-28 14:50] LABS: Beta HCG,Quantitative 14184 mIU/mL (<5.0)
--- NOTE | 2025-05-28 20:07 | PD.EDPREG ---
ED OB Contraction Preg RMI/HPI General Chief complaint: General Adult/Misc Complain Stated complaint: SENT BY PCP FOR EKG Time Seen by Provider: 05/28/25 13:14 Arrival date/time: 05/28/25 13:09 This is a case of 24-year-old female with no medical history came in in the emergency room due to elevated heart rate in the OB clinic with some palpitation patient came in for checkup and was sent here for further evaluation and treatment of palpitation patient is 34 weeks with regular checkup patient denies any chest pain shortness of breath denies abdominal pain flank pain back pain vaginal bleeding vaginal discharge vaginal spotting contraction patient stated that the fetus is moving on his stomach no other symptoms noted Limitations: no limitations Related Data Home Medications ?Medication ?Instructions ?Recorded ?Confirmed mv-mn no.97-folic 180 mcg-dha 25 tab PO 01/07/25 05/28/25 mg-herb no.293 25 mg chewable tablet (Alive Daily Support ) Allergies Allergy/AdvReac Type Severity Reaction Status Date / Time Penicillins Allergy Severe HIVES Verified 05/28/25 13:11 Review of Systems Review of Systems Systems Reviewed: All systems reviewed, normal except as documented Constitutional Constitutional: Reports system reviewed and no additional complaints, except as documented and Reports as per HPI Cardiovascular Cardiovascular: Reports system reviewed and no additional complaints, except as documented, Reports as per HPI, Denies acrocyanosis, Denies chest pain, Denies chest pain at rest, Denies chest pain with activity, Denies claudication, Denies diaphoresis, Denies dyspnea, Denies dyspnea on exertion, Denies edema, Denies irregular heart rhythm, Denies leg edema, Denies leg ulcers, Denies lightheadedness, Denies orthopnea, Denies palpitations, Denies paroxysmal nocturnal dyspnea, Denies pedal edema, Denies radiating jaw, neck or arm pain, Reports rapid heart rate, Denies slow heart rate and Denies syncope Respiratory Respiratory: Reports system reviewed and no additional complaints, except as documented, Reports as per HPI, Denies dyspnea and Denies dyspnea on exertion Neurologic Neurologic: Reports system reviewed and no additional complaints, except as documented, Reports as per HPI and Denies syncope Endocrine Endocrine: Denies palpitations Past Medical History Past Medical History NEUROLOGIC: Negative Neurological Disorders or Seizures CARDIAC: Positive Cardiac Disorders (chest pain, palpitations in 2018); Negative Congestive Heart Failure RESPIRATORY: Negative Chronic Obstructive Pulmonary Disease (COPD) GASTROINTESTINAL: Negative Gastrointestinal Disorders or Hepatitis GENITOURINARY: Negative Genitourinary Disorders or Renal Disease REPRODUCTIVE: Positive Previous Pregnancies MUSCULOSKELETAL: Positive Musculoskeletal Disorders ENDOCRINE: Negative Endocrine Disorders, Diabetes Mellitus Type 1 or Diabetes Mellitus Type 2 HEMATOLOGIC: Negative Blood Disorders OTHER HISTORY: Negative Hospitalization, Autoimmune Disease, Shingles, Blood Transfusions, Blood Transfusion Reaction, Anesthesia Reactions or Cancer Family History FAMILY HISTORY: Negative Family Psychiatric Problems, Family Respiratory Disorders, Family Cardiac Disorders, Family Gastrointestinal Problems, Family Cancer, Family Surgery or Family Anesthesia Reaction Surgical History SURGICAL: Negative Section Social History SMOKING STATUS: Never smoker SECOND HAND EXPOSURE: No SUBSTANCE USE: does not use ED Exam General Limitations: Present no limitations General appearance: Present alert, in no apparent distress and other (Patient is awake alert oriented not in distress nontoxic looking well-hydrated well-nourished) Head Head exam: Present atraumatic, normocephalic and normal inspection Eye Eye exam: Present normal appearance, PERRL and EOMI ENT ENT exam: Present normal exam, normal oropharynx and mucous membranes moist Neck Neck exam: Present normal inspection, full ROM and trachea midline; Absent tenderness, meningismus, lymphadenopathy or thyromegaly Chest Chest inspection: Present normal inspection and symmetric chest wall rise; Absent tenderness Respiratory Respiratory exam: Present normal lung sounds bilaterally; Absent respiratory distress, wheezes, stridor, accessory muscle use or prolonged expiratory phase Cardiovascular Cardiovascular exam: Present regular rate, normal rhythm, normal heart sounds and other (No pitting edema); Absent bradycardia, tachycardia, irregular rhythm, systolic murmur, diastolic murmur or clicks Abdominal Exam Abdominal exam: Present soft, normal bowel sounds and hyperactive bowel sounds (Gravid uterus normal active bowel sounds no tenderness no guarding no rebound no rigidity) Extremities Exam Extremities exam: Present normal inspection and full ROM Back Exam Back exam: Present normal inspection and full ROM Neurological Exam Neurological exam: Present alert, oriented X3, CN II-XII intact, normal gait and reflexes normal; Absent motor sensory deficit Psychiatric Psychiatric exam: Present normal affect and normal mood Skin Skin exam: Present warm, dry, intact, normal color and other (Excellent skin turgor) Course Quality Measures none Orders Category Date Time Status EKG (ED ONLY) *Do not use* NOW Care 05/28/25 13:25 Completed EKG (ED Only) Stat Exams 05/28/25 13:25 Draft US OB >= 14 weeks Fetus Stat Exams 05/28/25 13:25 Completed ABO/RH Type Stat Lab 05/28/25 13:37 Completed Beta HCG,Quantitative Stat Lab 05/28/25 13:37 Completed CBC Stat Lab 05/28/25 13:37 Completed CMP [Comprehensive Metabolic Panel] Stat Lab 05/28/25 13:37 Completed TSH [Thyroid Stimulating Hormone] Stat Lab 05/28/25 13:37 Completed Troponin I Stat Lab 05/28/25 13:37 Completed Urinalysis Stat Lab 05/28/25 13:50 Completed Sodium Chloride 0.9% 1000 ml [Ns] 1,000 ml Med 05/28/25 15:29 Discontinued IV 999 mls/hr Vital Signs Vital signs: Vital Signs Temperature 98.6 F 05/28/25 13:24 Pulse Rate 90 05/28/25 13:24 Respiratory Rate 16 05/28/25 13:24 Blood Pressure 110/69 05/28/25 13:24 Pulse Oximetry (%) 98 05/28/25 13:24 Oxygen Delivery Method Room Air 05/28/25 13:24 Patient is afebrile not tachycardic not tachypneic BP stable not hypoxic oxygen saturation is 98% in room air OB/Uterine Contractions MDM Narrative MDM Narrative:: This is a case of 24-year-old female with no medical history came in in the emergency room due to elevated heart rate in the OB clinic with some palpitation patient came in for checkup and was sent here for further evaluation and treatment of palpitation patient is 34 weeks with regular checkup patient denies any chest pain shortness of breath denies abdominal pain flank pain back pain vaginal bleeding vaginal discharge vaginal spotting contraction patient stated that the fetus is moving on his stomach no other symptoms noted patient is awake alert oriented not in distress nontoxic looking well-hydrated well-nourished excellent skin turgor gravid uterus normal active bowel sounds no guarding no rebound no rigidity patient vital signs stable BP stable not tachycardic not tachypneic not hypoxic oxygen saturation is normal patient heart rate is 88 sinus rhythm on the EKG normal EKG blood test showed no leukocytosis no anemia kidney and liver function is normal no electrolyte urinalysis is normal patient troponin is negative patient ultrasound is normal patient is 34 weeks with heart rate 134 for patient [id number] at this point patient symptoms resolved patient will follow-up with PCP in 2 days for reevaluation she was advised to see an OB barker peeler tomorrow for reevaluation and checkup for any OB symptoms she needs to return to the emergency room immediately or call 911 worsening symptoms recurrent persistent or any emergent concern call 911 or go to the nearest emergency room Patient was discharged with comfortable condition walking with stable gait. Patient verbalized no further complains explained diagnosis and answered patient question. Patient is comfortable with the proposed management plan including the need to follow up with his/her primary care physician and any specialist if applicable Discussed patient for any urgent condition or worsening sx, He/She needed to go to emergency room immediately or call 911. Patient acknowledge the responsibility to follow up as instructed and to monitor her/his symptoms. For any persistence of the symptoms for more than 3-5 days return precaution advised. Discussed the result of the test and was given printed discharge instruction Patient data External records reviewed:: [facility] previous records Clinical information provided by:: patient Social determinants that could affect healthcare access:: none Patient has the following chronic illnesses:: none How is presenting disease/condition affected by chronic disease/condition?: no chronic disease Evaluation data The following diagnostics were reviewed and interpreted by me:: other (specify) Lab and/or radiology exams considered but not ordered:: none Interpretation Summary: none Medications / Prescriptions Medications or Prescriptions considered but not ordered:: none Medication administrations:: Medication Administration History Discontinued Medications Sodium Chloride (Ns) 1,000 mls @ 999 mls/hr IV .Q1H1M ONE Stop: 05/28/25 16:29 Last Admin: 05/28/25 15:54 Dose: Not Given Documented By: Non-Admin Reason: Cancelled by Provider none Consultations Consultation(s) initiated? (list below): No Diagnosis OB Contractions Differential Diagnosis: other (palpitation ) Most likely diagnosis given after review of the tests above:: palpitation Admission Indicated Admission indicated?: not indicated Explain why admission is indicated or not indicated:: not indicated Admission Request Was there a request for admission?: No Admission Attestation Admission request attestation: not indicated Disposition Plan Disposition Plan: Discharge Discharge Attestation Discharge Attestation: The patient and all family members were given an opportunity to ask questions and understood the discharge instructions. Discharge instructions specifically effects, indications for sooner follow up or return to the emergency department, and the expected course of current diagnosis. Patient condition: Stable Discharge Plan Plan Patient Disposition: HOME (Self Care) Patient condition on transfer: Stable Prescriptions/Referrals Prescriptions/Med Rec: No Action Alive Daily Support 180 mcg-25 mg- 25 mg tablet,chewable PO Referrals: Dino Jerry PA-C [Primary Care Provider] - In 1 week Problem List Clinical Impression: Palpitation, Patient/Caregiver Discharge Instructions Education Materials: Preg 3rd Trimester, ED Palpitations Additional Instructions: Follow-up with your primary care physician in 2 days for reevaluation and to be referred to stump shooter for further evaluation and treatment of your palpitation recurrence persistent symptoms or any emergent concern return to the emergency room immediately or call 911 it is very important to return to your OB barker peeler tomorrow for reevaluation of your third trimester and for your checkup for any vaginal bleeding vaginal discharge contraction water broke or the baby is not moving fever chills nausea vomiting chest pain abdominal pain shortness of breath return to the emergency room immediately or call [phone] Print Language: Estonian Stand Alone Forms: Karla Award Info., Patient Portal Info Letter PA/RJ Supervising Physician PIERRE/RJ Supervising Physician: dr yoon
== END 2025-05-28 15:56 | disposition home or self-care (01) ==
PROVIDERS: Nurse Practitioner Family; Emergency Provider Emergency Medicine; PCP Physician Assistant
DX: O99.891 Other specified diseases and conditions complicating pregnancy (principal); R00.2 Palpitations; R07.9 Chest pain, unspecified; Z3A.34 34 weeks gestation of pregnancy
CPT/HCPCS: 36415; 76805; 80053; 81001; 84443; 84484; 84702; 85025; 86900; 86901; 93005; 99283

== ENCOUNTER 2025-06-10 08:41 | Outpatient (AMB) | payer OTHER, SELFPAY ==
--- NOTE | 2025-06-10 08:43 | AMB.OBPNC ---
Vital Signs 06/10/25 08:49 06/10/25 09:46 Height 1.68 m Height Method Stated Weight 91.682 kg Weight Measurement Method Standing Scale BMI 32.5 BP 110/74 110/70 Blood Pressure Source Automatic Cuff Blood Pressure Location Left Upper Arm Position Sitting Respiration 18 Pulse 88 Pulse Source Monitor Temp 98.2 F Temp Source Oral Pulse Oximetry (%) 98 Oxygen Delivery Method Room Air Allergies/Home Meds Allergies & Medications Allergies Penicillins Allergy (Severe, Verified 06/10/25 08:50) HIVES Medication Reconciliation mv-mn no.97-folic 180 mcg-dha 25 mg-herb no.293 25 mg chewable tablet (Alive Daily Support ) tab PO 01/07/25 [History Confirmed 06/10/25] Immunizations Immunizations Flu Vaccine in the Last 12 Months: No Flu Vaccine Exclusion Criteria: Refused by Patient Care OB Visit Log OB Flowsheet Initial Weight: Not Recorded Date <del>?</del> EGA Weight BP Alb Glu CTX Pres Fundal ht FHR Mov Dilation Station Effacement Hx Notes Visit Note 12/10/24 <del>?</del> 10w 0d 70.42 kg 117/74 absent unknown 10 145 24-year-old 3 para 1 for OBI. Slight nausea. Denies SAB complaints. And she is very happy with . OB panel today with NIPT and carrier screen. This schedule maternal- medicine ultrasound. Discussed SAB precautions. Increase fluids. Comfort measures for first trimester discomforts and nausea. And return in 4 weeks OB check 01/07/25 <del>?</del> 14w 0d 74.106 kg 125/83 absent unknown 14 145 active reports light FM, denies, sab s/s,no leaking,no bleeding, N/V improved. AFP NV, discuss sab precaution. m appt 02/18. rtc 4 week 02/04/25 <del>?</del> 18w 0d 76.714 kg 115/74 absent unknown 18 145 active No OB complaints. 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 M appointment scheduled for February 17. Reports movement. Denies leaking, denies bleeding, denies contractions. AFP, keep mfm appt 02/17, discussed labor precautions. Increase fluids. Return in 4 weeks OB check 03/19/25 <del>?</del> 24w 1d 81.25 kg 135/75 absent unknown 24 145 active No complaints of bleeding. No cramps. No leaking. Reports good movement. Patient was told her last ultrasound that the baby was measuring small and that she had complete previa Discussed previa with patient and precautions. labor precautions reviewed. Third trimester labs today with carrier screens. Discussed previa with patient and precautions. labor precautions reviewed. Third trimester labs today. Discussed previa with patient and precautions. labor precautions reviewed. Third trimester labs today. f/u mfm 04/02. schedule with OB 04/30/25 <del>?</del> 30w 1d 87.26 kg 111/71 absent unknown 30 145 active No OB complaints. Fetus is active per patient. Denies leaking bleeding or contractions Follow-up maternal- medicine appointment May 07. Continue breech exercises. Discussed labor precautions danger signs and symptoms, and kick count twice a day. Patient declined Tdap 05/28/25 <del>?</del> 34w 1d 90.265 kg 117/78 absent cephalic 34 145 active Reports good movement. Denies leaking, bleeding, contractions. I reviewed patient's May 07 MFM referral. During the visit MFM provider discussed with patient her pulse. She noted when the patient came for her MFM appointment as her pulse was over 100. [facility] can discussed with patient her previous history and it was noted that when the patient was about 15 years old she saw a sander operator for complaints of palpitations. The sander operator told the patient that maybe she had mitral valve prolapse and that the patient should not worry about any other findings. So the patient had no follow-up for this history of palpitations. The patient does report that as she has grown older she seems to have an episode of her pulse starting to be elevated and some palpitations. But it sporadic and comes and goes. Patient denies any palpitations and chest pain with it. She also does not have any syncope with that and she does not seem to think that it is getting any worse. Patient does have an outstanding referral to Dr. Pako Belcher a sander operator for echo and Holter. Her insurance right now is not working and still having difficulty with the referral.. Pulse today was 80 and regular. Lungs clear no wheezes. Reports good movement. Denies leaking, bleeding, contractions. I reviewed patient's May 07 MF referral. During the visit MFM provider discussed with patient her pulse. She noted when the patient came for her M appointment as her pulse was over 100. [facility] can discussed with patient her previous history and it was noted that when the patient was about 15 years old she saw a sander operator for complaints of palpitations. The sander operator told the patient that maybe she had mitral valve prolapse and that the patient should not worry about any other findings. So the patient had no follow-up for this history of palpitations. The patient does report that as she has grown older she seems to have an episode of her pulse starting to be elevated and some palpitations. But it sporadic and comes and goes. Patient denies any palpitations and chest pain with it. She also does not have any syncope with that and she does not seem to think that it is getting any worse. Patient does have an outstanding referral to Dr. Pako Belcher a sander operator for echo and Holter. Her insurance right now is not working and still having difficulty with the referral.. Pulse today was 80 and regular. Lungs clear no wheezes. EKG normal rythm EKG in the ED today. Patient will call her primary care [place] and discussed with them her options of getting the referral to cardiology. Discussed labor precautions. Kick count twice a day. Continue prenatals. Patient has a follow-up with [facility] again June 19. Return in 2 weeks OB check 06/10/25 <del>?</del> 36w 0d 91.682 kg 110/74 110/70 absent cephalic 36 145 active 1 -4 Insurance is not working. Patient's referral to cardiology is still pending. Reports good movement. Denies any dizziness. No headache no blurred vision patient is tired of being no comfortable. Reports movement. Denies leaking, bleeding. Increased contractions IOL 07/02/25 IOL 07/02/25. GBS today. Discussed comfort measures for labor and early labor. Kick count twice a day. Keep appointment with maternal- medicine June 19. MC Calculator Estimated Delivery Date Method Current WG Current Estimate 07/08/25 LMP (Certain) 36w 0d Other Estimates 07/08/25 Ultrasound #1 36w 0d 07/08/25 Manual 36w 0d final mc: 07/08/25. complete previa, EFW: Notes Visit Date: 06/10/25 Last Updated by: Mansi Glynn CNM sono 05/07/25: EFW 28%, normal AFP, Previa resolved. BPP 02/01 Visit Date: 03/19/25 Last Updated by: Mansi Glynn CNM 02/18/25: complete posterior previa. EFW: 13th %. IUP @20wk Visit Date: 01/07/25 Last Updated by: Mansi Glynn CNM 01/07/25: OB Panel: O+,abs-,rpr;;nr, rub NI, hbsag-,hiv-, hc-, GC/CT-, US-,UT-, NIPT_/girl, screen -. Visit Date: 12/10/24 Last Updated by: Mansi Glynn CNM 24 yo . lmp 10/01/24. EDC 1:13;26 Office Procedures OBC Clinic LOC & Office Proc's Nursing/Assessment Patient Status: Established Patient OB Clinic Nursing Assessment: Medication Reconciliation, Update PMH in EMR and Vital Signs OB Clinic Coordination of Care: Consent,records obtained, informed consent, Education Simp Pt/Fam, Lab and Imaging orders, Results/Orders obtained and Staff clarify orders Special Needs: Heart tones Established Patient Charge Established Patient Point Assignment: 110 Established Patient Point Charge: EP Level 3 (80-115) Assessment & Plan Diagnosis / Problem List (1) Encounter for supervision of high risk in third trimester, antepartum: Status: Acute Plan GBS today. Labor precautions. Kick count twice a day. Comfort measures. Return in a week OB check. Keep appointment with [facility] June 19 Additional Plan Follow Up: 1 Week (obc)
[2025-06-10 08:49] VITALS: BP 110/74; PULSE 88; RESP 18; TEMP 36.8; O2SAT 98; BMI 32.5
[2025-06-10 09:46] VITALS: BP 110/70
== END 2025-06-10 09:44 | disposition home or self-care (01) ==
LOC: HODSOBC 08:41
PROVIDERS: Supervising Provider Advanced Practice Midwife; Visit Provider Advanced Practice Midwife
DX: O09.93 Supervision of high risk pregnancy, unspecified, third trimester (principal); Z3A.36 36 weeks gestation of pregnancy; Z36.85 Encounter for antenatal screening for Streptococcus B; Z28.21 Immunization not carried out because of patient refusal; Z88.0 Allergy status to penicillin
CPT/HCPCS: 99213; G0463

== ENCOUNTER 2025-06-21 12:56 | Outpatient (AMB) | payer OTHER, SELFPAY ==
[2025-06-21 13:26] VITALS: BP 118/79; PULSE 101; RESP 20; TEMP 36.6; O2SAT 96; BMI 32.6
--- NOTE | 2025-06-21 13:26 | OBCLNT_ITS ---
Vital Signs 06/21/25 13:26 Height 1.68 m Height Method Stated Weight 92.136 kg Weight Measurement Method Standing Scale BMI 32.6 BP 118/79 Blood Pressure Source Automatic Cuff Blood Pressure Location Left Upper Arm Position Sitting Respiration 20 Pulse 101 H Pulse Source Monitor Temp 97.8 F Temp Source Oral Pulse Oximetry (%) 96 Oxygen Delivery Method Room Air Allergies/Home Meds Allergies & Medications Allergies Penicillins Allergy (Severe, Verified 06/21/25 13:27) HIVES Medication Reconciliation mv-mn no.97-folic 180 mcg-dha 25 mg-herb no.293 25 mg chewable tablet (Alive Daily Support ) tab PO 01/07/25 [History Confirmed 06/21/25] Immunizations Immunizations Flu Vaccine in the Last 12 Months: No Flu Vaccine Exclusion Criteria: Refused by Patient Care OB Visit Log OB Flowsheet Initial Weight: Not Recorded Date -?-?-?-?-?-?-?-?-?-?-?-?- EGA Weight BP Alb Glu CTX Pres Fundal ht FHR Mov Dilation Station Effacement Hx Notes Visit Note 12/10/24 -?-?-?-?-?-?-?-?-?-?-?-?- 10w 0d 70.42 kg 117/74 absent unknown 10 145 24-year-old 3 para 1 for OBI. Slight nausea. Denies SAB complaints. And she is very happy with . OB panel today w ith NIPT and carrier screen. This schedule maternal- medicine ultrasound. Discussed SAB precautions. Increase fluids. Comfort measures for first trimester discomforts and nausea. And return in 4 weeks OB check 01/07/25 -?-?-?-?-?-?-?-?-?-?-?-?- 14w 0d 74.106 kg 125/83 absent unknown 14 145 active reports light FM, denies, sab s/s,no leaking,no bleeding, N/V improved. AFP NV, discuss sab precaution. [facility] appt 02/18. rtc 4 week 02/04/25 -?-?-?-?-?-?-?-?-?-?-?-?- 18w 0d 76.714 kg 115/74 absent unknown 18 145 active No OB complaints. 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 MFM appointment scheduled for February 17. Reports movement. Denies leaking, denies bleeding, denies contractions. AFP, keep mfm appt 02/17, discussed labor precautions. Increase fluids. Return in 4 weeks OB check 03/19/25 -?-?-?-?-?-?-?-?-?-?-?-?- 24w 1d 81.25 kg 135/75 absent unknown 24 145 active No complaints of bleeding. No cramps. No leaking. Reports good movement. Patient was told her last ultrasound that the baby was measuring small and that she had complete previa Discussed previa with patient and precautions. labor precautions reviewed. Third trimester labs today with carrier screens. Discussed previa with patien t and precautions. labor precautions reviewed. Third trimester labs today. Discussed previa with patien t and precautions. labor precautions reviewed. Third trimester labs today. f/u [facility] 04/02. schedule with OB 04/16/25 -?-?-?-?-?-?-?-?-?-?-?-?- 28w 1d 85.332 kg 121/78 - Renan Shipley is a 3 para 1-0-1 at 28 weeks and 1 day gestation presenting for review of her 3-hour glucose tolerance test and anatomy ultrasound with Doppler testing. - She had a 1-hour glucose screening enedelia t result of 147 mg/dL. - She reports the baby is active. - She denies cramping, contractions, shmuel adama, or bleeding. - She confirms taking her vitam ins. - She has been seeing the certified nurs e secondary social studies teacher (Mansi) in the office who previously delivered her son. - Follow-up in 4 weeks for growth with Doppler and biophysical profile - Continue with CNKojo Nazario for routine pre care - Sit on exercise ball 10-15 minutes mor asa and evening to help encourage head-down position - Continue vitamins - Follow-up appointment with Mansi in 2 w eeks 04/30/25 -?-?-?-?-?-?-?-?-?-?-?-?- 30w 1d 87.26 kg 111/71 absent unknown 30 145 active No OB complaints. Fetus is active per patient. Denies leaking bleeding or contractions Follow-up maternal- medicine appointment May 07. Continue breech exercises. Discussed labor precautions danger signs and symptoms, and kick count twice a day. Patient declined Tdap 05/28/25 -?-?-?-?-?-?-?-?-?-?-?-?- 34w 1d 90.265 kg 117/78 absent cephalic 34 145 active Reports good movement. Denies leaking, bleeding, contractions. I reviewed patient's May 07 [facility] referral. During the visit MFM provider discussed with patient her pulse. She noted when the patient came for her MFM appointment as her pulse was over 100. M can discussed with patient her previous history and it was noted that when the patient was about 15 years old she saw a ammonia refrigeration worker for complaints of palpitations. The ammonia refrigeration worker told the patient that maybe she had mitral valve prolapse and that the patient should not worry about any other findings. So the patient had no follow-up for this history of palpitations. The patient does report that as she has grown older she seems to have an episode of her pulse starting to be elevated and some palpitations. But it sporadic and comes and goes. Patient denies any palpitations and chest pain with it. She also does not have any syncope with that and she does not seem to think that it is getting any worse. Patient does have an outstanding referral to Dr. Pako Belcher a ammonia refrigeration worker for echo and Holter. Her insurance right now is not working and still having difficulty with the referral.. Pulse today was 80 and regular. Lungs clear no wheezes. Reports good movement. Denies leaking, bleeding, contractions. I reviewed patient's May 07 MF referral. During the visit MFM provider discussed with patient her pulse. She noted when the patient came for her MFM appointment as her pulse was over 100. [facility] can discussed with patient her previous history and it was noted that when the patient was about 15 years old she saw a ammonia refrigeration worker for complaints of palpitations. The ammonia refrigeration worker told the patient that maybe she had mitral valve prolapse and that the patient should not worry about any other findings. So the patient had no follow-up for this history of palpitations. The patient does report that as she has grown older she seems to have an episode of her pulse starting to be elevated and some palpitations. But it sporadic and comes and goes. Patient denies any palpitations and chest pain with it. She also does not have any syncope with that and she does not seem to think that it is getting any worse. Patient does have an outstanding referral to Dr. Pako Belcher a ammonia refrigeration worker for echo and Holter. Her insurance right now is not working and still having difficulty with the referral.. Pulse today was 80 and regular. Lungs clear no wheezes. EKG normal rythm EKG in the ED to day. Patient will call her primary care [place] and discussed with them her options of getting the referral to cardiology. Discussed labor precautions. Kick count twice a day. Continue prenatals. Patient has a follow-up with [facility] again June 19. Return in 2 weeks OB check 06/10/25 -?-?-?-?-?-?-?-?-?-?-?-?- 36w 0d 91.682 kg 110/74 110/70 absent cephalic 36 145 active 1 -4 Insurance is not working. Patient's referral to cardiology is still pending. Reports good movement. Denies any dizziness. No headache no blurred vision patient is tired of being no comfortable. Reports movement. Denies leaking, bleeding. Increased contractions IOL 2 6 IOL 07/02/25. GBS today. Dis cussed comfort measures for labor and early labor. Kick count twice a day. Keep appointment with maternal- medicine June 19. 06/21/25 -?-?-?-?-?-?-?-?-?-?-?-?- 37w 4d 92.136 kg 118/79 occasional cephalic 37 145 active 1.5 -3 60 Patient very worried about her elevated heart rate. She reports that she is tired even to full close she has to lay down. And she is also concerned that she cannot do any normal task without getting tired and feeling her pulse race. Reports good movement. Increased contractions. Denies leaking or bleed. Agrees to induction at 38+ weeks based on [facility] recommendation to induce . Patient will be scheduled for induction June 26, 2025 based on history of MVP and rule out POTS syndrome.. There is a note in the last MFM report May 28 were maternal- medicine recommended medically induced induction based on MVP. Discussed labor precautions. Kick count twice a day. Discussed induction and ER precautions return in a week if needed for OB check. MC Calculator Estimated Delivery Date Method Current WG Current Estimate 07/08/25 LMP (Certain) 37w 4d Other Estimates 07/08/25 Ultrasound #1 37w 4d 07/08/25 Ultrasound #2 37w 4d 07/08/25 Manual 37w 4d final mc: 07/08. complete previa, EFW:46 Notes Visit Date: 06/21/25 Last Updated by: Mansi Glynn CNM GBS- Visit Date: 06/10/25 Last Updated by: Mansi Glynn CNM sono 05/07/25: EFW 28%, normal AFP, Previa resolved. BPP 02/01 Visit Date: 04/16/25 Last Updated by: Darryl Awan MD Laboratory, Imaging, and Diagnostic Test Results - One-hour glucose screenin mg/dL - Three-hour glucose tolerance test: 87, 111, 114, 101 mg/dL (normal) - Ultrasound (04/02/2025) at [facility]: Single living fetus at 26 weeks gestation, transverse presentation, weight 768 grams (8th percentile), abdominal circumference at 20th percentile, amniotic fluid within normal limits, posterior low-lying placenta (previously placenta previa, now resolved), S/D ratio normal at 4.17, overall reassuring status, growth restriction noted Visit Date: 03/19/25 Last Updated by: Mansi Glynn CNM 02/18/25: complete posterior previa. EFW: 13th %. IUP @20wk Visit Date: 01/07/25 Last Updated by: Mansi Glynn CNM 01/07/25: OB Panel: O+,abs-,rpr;;nr, rub NI, hbsag-,hiv-, hc-, GC/CT-, US-,UT-, NIPT_/girl, screen -. 250 Visit Date: 12/10/24 Last Updated by: Mansi Glynn CNM 24 yo . lmp 10/01/24. EDC 1:13;26 Office Procedures OBC Clinic LOC & Office Proc's Nursing/Assessment Patient Status: Established Patient OB Clinic Nursing Assessment: Medication Reconciliation, Update PMH in EMR and Vital Signs OB Clinic Coordination of Care: Complex Care and Chronic Disease 1-5, Consent,records obtained, informed consent, Education Simp Pt/Fam, 1 Ins Authorization, Lab and Imaging orders, Results/Orders obtained and Staff clarify orders Special Needs: Heart tones Established Patient Charge Established Patient Point Assignment: 150 Established Patient Point Charge: EP Level 4 (120-155) Assessment & Plan Diagnosis / Problem List (1) Encounter for supervision of high risk in third trimester, antepartum: Status: Acute (2) MVP (mitral valve prolapse): Status: Acute Plan Schedule induction May based on consult with both OBs on-call. Discussed labor precautions. Kick count twice a day. Discussed ER precautions. Additional Plan Follow Up: 1 Week (obc)
== END 2025-06-21 13:55 | disposition home or self-care (01) ==
PROVIDERS: Supervising Provider Advanced Practice Midwife; Visit Provider Advanced Practice Midwife
DX: O09.893 Supervision of other high risk pregnancies, third trimester (principal); O99.413 Diseases of the circulatory system complicating pregnancy, third trimester; I34.1 Nonrheumatic mitral (valve) prolapse; Z28.21 Immunization not carried out because of patient refusal; Z88.0 Allergy status to penicillin
CPT/HCPCS: 99214; G0463